=== PATIENT | male | born 1985 | race American Indian/Alaskan Native ===

== ENCOUNTER 2020-03-07 00:33 | Observation (INO) | payer OTHER ==
[2020-03-07] MEDS ORDERED: ONDANSETRON 4 MG/2 ML INJ IV ONE ×2 (01:00→02:21)
[2020-03-07] MEDS ORDERED: SODIUM CHLORIDE 0.9% 1000 ML 1,000 ML IV ONE ×2 (01:00→02:21)
--- NOTE | 2020-03-07 01:03 | Emergency Department Report ---
ED Abdominal Pain HPI - General Chief Complaint: Abdominal Pain Stated Complaint: STOMACH PAIN PUI?: No Time Seen by Provider: 03/07/20 00:59 Source: patient Mode of arrival: Ambulatory Limitations: No Limitations - History of Present Illness Initial Comments: Patient is a 34-year-old male that presents emergency room with complaints of abdominal pain, nausea, vomiting. Patient states his symptoms started yesterday. Patient states his pain is a 10 out of 10. Patient states his pain is worse with vomiting and movement. Patient states his pain is better with rest and n.p.o. and not vomiting. Patient states he is not able to hold any food or water down. Patient states he recently quit smoking approximately 3 days ago. Patient denies chest pain shortness of breath. Patient denies fever and chills. Patient denies recent travel. Patient denies recent international travel. Patient denies exposure to the novel coronavirus. Patient denies sick contacts. Patient denies fever and chills. Patient denies cough. Patient denies diarrhea. Patient denies coming in contact with anybody with symptoms of the novel coronavirus. MD Complaint: abdominal pain -: Sudden Location: diffuse Radiation: none Migration to: no migration Severity: severe Severity scale (0 -10): 10 Quality: stabbing Consistency: constant Improves With: rest Worsens With: vomiting, movement Associated Symptoms: nausea, vomiting. denies: diarrhea, fever, chills, constipation, dysuria, hematemesis, hematochezia, melena, hematuria, anorexia, syncope - Related Data Allergies Allergy/AdvReac Type Severity Reaction Status Date / Time No Known Allergies Allergy Unverified 03/07/20 00:50 ED Review of Systems ROS: Stated complaint: STOMACH PAIN Other details as noted in HPI Constitutional: denies: chills, fever Eyes: denies: eye pain, eye discharge, vision change ENT: denies: ear pain, throat pain Respiratory: denies: cough, shortness of breath, wheezing Cardiovascular: denies: chest pain, palpitations Endocrine: no symptoms reported Gastrointestinal: abdominal pain, nausea, vomiting. denies: diarrhea, constipation, hematemesis, melena, hematochezia Genitourinary: denies: urgency, dysuria, frequency Musculoskeletal: denies: back pain, joint swelling, arthralgia Skin: denies: rash, lesions Neurological: denies: headache, weakness, paresthesias Psychiatric: denies: anxiety, depression Hematological/Lymphatic: denies: easy bleeding, easy bruising ED Past Medical Hx - Past Medical History Previous Medical History?: No - Surgical History Past Surgical History?: No - Family History Family history: no significant - Social History Smoking Status: Former Smoker Substance Use Type: None ED Physical Exam - General Limitations: No Limitations General appearance: alert, in no apparent distress - Head Head exam: Present: atraumatic, normocephalic - Eye Eye exam: Present: normal appearance - ENT ENT exam: Present: mucous membranes moist - Neck Neck exam: Present: normal inspection - Respiratory Respiratory exam: Present: normal lung sounds bilaterally. Absent: respiratory distress - Cardiovascular Cardiovascular Exam: Present: regular rate, normal rhythm. Absent: systolic murmur, diastolic murmur, rubs, gallop - GI/Abdominal GI/Abdominal exam: Present: soft, tenderness (Generalized tenderness.), normal bowel sounds - Rectal Rectal exam: Present: deferred - Extremities Exam Extremities exam: Present: normal inspection - Back Exam Back exam: Present: normal inspection - Neurological Exam Neurological exam: Present: alert, oriented X3 - Psychiatric Psychiatric exam: Present: normal affect, normal mood - Skin Skin exam: Present: warm, dry, intact, normal color. Absent: rash ED Course Vital Signs 03/07/20 00:40 Temperature 97.8 F Pulse Rate 91 H Respiratory 18 Rate Blood Pressure 144/102 O2 Sat by Pulse 99 Oximetry - Reevaluation(s) Reevaluation #1: Patient vomiting was controlled with the initial dose of Zofran. However the patient is now vomiting again. Patient was given fluids and a second dose of Zofran. 03/07/20 02:15 Reevaluation #2: Patient continues to vomit. Patient given a dose of Phenergan rectal suppository. 03/07/20 02:31 Reevaluation #3: Patient continued to vomit and given Haldol 5 mg. Patient's nausea and vomiting has stopped. 03/07/20 03:01 Reevaluation #4: I discussed all results with patient. I discussed plan of care with patient. Patient agrees with plan of care and admission. Patient to be admitted to the hospitalist service. 03/07/20 03:04 - Consultations Consultation #1: Hospitalist consulted for admission. Hospitalist to admit patient. 03/07/20 03:04 ED Medical Decision Making - Lab Data Result diagrams: 03/07/20 01:00 03/07/20 01:00 - Radiology Data Radiology results: report reviewed CT ABDOMEN AND PELVIS WITH CONTRAST INDICATION / CLINICAL INFORMATION: abd pain. n/v. TECHNIQUE: Axial CT images were obtained through the abdomen and pelvis after 100 cc of Omnipaque [address] scans at this location are performed using CT dose reduction for ALARA by means of automated exposure control. COMPARISON: None available. FINDINGS: LOWER CHEST: No significant abnormality. LIVER: No significant abnormality. GALLBLADDER: No significant abnormality. BILE DUCTS: No significant abnormality. PANCREAS: No significant abnormality. SPLEEN: No significant abnormality. ADRENALS: No significant abnormality. RIGHT KIDNEY and URETER: No significant abnormality. LEFT KIDNEY and URETER: No significant abnormality. STOMACH and SMALL BOWEL: There is a mildly distended fluid-filled loop of small bowel in the midabdomen with some mild wall thickening within small bowel loops. No obstruction is seen. There is fluid in the stomach. COLON: No significant abnormality. APPENDIX: No significant abnormality. PERITONEUM: No free fluid. No free air. No fluid collection. LYMPH NODES: No significant adenopathy. AORTA and ARTERIES: No significant abnormality. IVC and VEINS: No significant abnormality. URINARY BLADDER: No significant abnormality. REPRODUCTIVE ORGANS: No significant abnormality. ADDITIONAL FINDINGS: None. SKELETAL SYSTEM: No acute abnormality. IMPRESSION: 1. There is mild wall thickening in a few small bowel loops in the midabdomen with a mildly distended fluid-filled loop noted. There is fluid in the stomach. The appearance is most suggestive of an enteritis. - Medical Decision Making Patient is a 34-year-old male that presents emergency room with nausea and vomiting and abdominal pain. Patient given 2 doses of Zofran, a dose of Phenergan suppository and Haldol. After the Haldol the patient's nausea vomiting was finally controlled. Patient given fluids entire time in the ER. Patient had labs done which were essentially unremarkable. Patient had a CT scan which is enteritis. Patient CT does not show any other acute findings. Patient was admitted to the hospitalist service for further evaluation treatment and intractable nausea and vomiting. - Differential Diagnosis Gastroenteritis, enteritis, colitis, nausea, vomiting, abdominal pain Critical Care Time: Yes Critical care time in (mins) excluding proc time.: 35 Critical care attestation.: If time is entered above; I have spent that time in minutes in the direct care of this critically ill patient, excluding procedure time. Critical Care Time: 35 MINUTES ED Disposition Clinical Impression: Gastroenteritis, Enteritis Abdominal pain Qualifiers: Abdominal location: generalized Qualified Code(s): R10.84 - Generalized abdominal pain Nausea & vomiting Qualifiers: Vomiting type: unspecified Vomiting Intractability: intractable Qualified Code(s): R11.2 - Nausea with vomiting, unspecified Disposition: DC-09 OP ADMIT IP TO THIS HOSP Is pt being admited?: Yes Does the pt Need Aspirin: No Condition: Critical Time of Disposition: 03:06
[2020-03-07 01:40] LABS: Hematocrit 48.7 % (35.5-45.6); Hemoglobin 16.7 gm/dl (11.8-15.2); Mean Corpuscular HGB Conc 34 % (32-34); Mean Corpuscular Volume 94 fl (84-94); Platelet Count 283 K/mm3 (140-440); Red Blood Count 5.19 M/mm3 (3.65-5.03); Red Cell Distribution Width 12.1 % (13.2-15.2)
[2020-03-07 01:42] LABS: Alanine Aminotransferase 20 units/L (7-56); Albumin 4.5 g/dL (3.9-5); BUN/Creatinine Ratio 19; Blood Urea Nitrogen 19 mg/dL (9-20); Calcium 9.6 mg/dL (8.4-10.2); Hemolysis Index 37
[2020-03-07] MEDS ORDERED: PROMETHAZINE 25 MG RECT SUPP PR ONE (02:32)
[2020-03-07] MEDS ORDERED: HALOPERIDOL LACTATE 5 MG/1 ML INJ ONE (02:44)
--- NOTE | 2020-03-07 02:56 | Cat Scan Report ---
CT ABDOMEN AND PELVIS WITH CONTRAST INDICATION / CLINICAL INFORMATION: abd pain. n/v. TECHNIQUE: Axial CT images were obtained through the abdomen and pelvis after 100 cc of Omnipaque [address] scans at this location are performed using CT dose reduction for ALARA by means of automat ed exposure control. COMPARISON: None available. FINDINGS: LOWER CHEST: No significant abnormality. LIVER: No significant abnormality. GALLBLADDER: No significant abnormality. BILE DUCTS: No significant abnormality. PANCREAS: No significant abnormality. SPLEEN: No significant abnormality. ADRENALS: No significant abnormality. RIGHT KIDNEY and URETER: No significant abnormality. LEFT KIDNEY and URETER: No significant abnormality. STOMACH and SMALL BOWEL: There is a mildly distended fluid-filled loop of small bowel in the midabdom en with some mild wall thickening within small bowel loops. No obstruction is seen. There is fluid in the stomach. COLON: No significant abnormality. APPENDIX: No significant abnormality. PERITONEUM: No free fluid. No free air. No fluid collection. LYMPH NODES: No significant adenopathy. AORTA and ARTERIES: No significant abnormality. IVC and VEINS: No significant abnormality. URINARY BLADDER: No significant abnormality. REPRODUCTIVE ORGANS: No significant abnormality. ADDITIONAL FINDINGS: None. SKELETAL SYSTEM: No acute abnormality. IMPRESSION: 1. There is mild wall thickening in a few small bowel loops in the midabdomen with a mildly distended fluid-filled loop noted. There is fluid in the stomach. The appearance is most suggestive of an ente ritis. Signer Name: Lacho Moeller MD Signed: 03/07/2020 2:52 AM Workstation Name: [id number]
[2020-03-07] MEDS ORDERED: HALOPERIDOL LACTATE 5 MG/1 ML INJ IM ONE (02:57)
[2020-03-07 03:26] LABS: Total Cells Counted 100
[2020-03-07 03:27] LABS: Anisocytosis 1+; Platelet Estimate Consistent w Auto
[2020-03-07] MEDS ORDERED: MAGNESIUM HYDROXIDE (MOM) ORAL LIQD UDC PO PRN (04:12)
[2020-03-07] MEDS ORDERED: MORPHINE 2 MG/1 ML INJ IV PRN (04:12)
[2020-03-07] MEDS ORDERED: ONDANSETRON 4 MG/2 ML INJ IV PRN (04:12)
[2020-03-07] MEDS ORDERED: ACETAMINOPHEN 325 MG TAB PO PRN (04:12)
--- NOTE | 2020-03-07 04:21 | History and Physical Report ---
History of Present Illness Date of examination: 03/07/20 Date of admission: 03/07/20 03:08 Chief complaint: Nausea and Vomiting History of present illness: 34-year-old -Iranian male presenting to the emergency room today complaining of nausea and vomiting with associated abdominal pain. Symptoms were said to have started yesterday. Abdominal pain is said to be more in the upper abdomen and is about 10/10 in severity. Patient denies any fever or chills, no chest pain or shortness of breath, no headache or dizziness, no hematuria or dysuria, no diarrhea, no constipation, denies any sick contacts and no recent travel, denies any contact with anyone w jeaneth [id number]. Patient indicates that he just quit tobacco use about 3 days ago. Work-up in the emergency room , CT of the abdomen and pelvis was suggestive of enteritis. Patient being admitted for intractable nausea vomiting with abdominal pain secondary to enteritis. Past History Past Medical History: No medical history Past Surgical History: No surgical history Social history: smoking (Former smoker) Family history: no significant family history Medications and Allergies Allergies Allergy/AdvReac Type Severity Reaction Status Date / Time No Known Allergies Allergy Unverified 03/07/20 00:50 Active Meds: Active Medications Acetaminophen (Acetaminophen 325 Mg Tab) 650 mg PO Q4H PRN PRN Reason: Pain MILD(1-3)/Fever >100.5/PADILLA Sodium Chloride (Nacl 0.9% 1000 Ml) 1,000 mls @ 125 mls/hr IV DIRECT AMANDA Magnesium Hydroxide (Magnesium Hydroxide (Mom) Oral Liqd Udc) 30 ml PO Q4H PRN PRN Reason: Constipation Morphine Sulfate (Morphine 2 Mg/1 Ml Inj) 2 mg IV Q4H PRN PRN Reason: Pain, Moderate (4-6) Ondansetron HCl (Ondansetron 4 Mg/2 Ml Inj) 4 mg IV Q8H PRN PRN Reason: Nausea And Vomiting Sodium Chloride (Sodium Chloride 0.9% 10 Ml Flush Syringe) 10 ml IV BID AMANDA Sodium Chloride (Sodium Chloride 0.9% 10 Ml Flush Syringe) 10 ml IV PRN PRN PRN Reason: LINE FLUSH Review of Systems Constitutional: no fever, no chills Ears, nose, mouth and throat: no nasal congestion, no sore throat Cardiovascular: no chest pain, no palpitations Respiratory: no cough, no shortness of breath Gastrointestinal: abdominal pain, nausea, vomiting, no diarrhea Genitourinary Male: no dysuria, no hematuria, no flank pain Musculoskeletal: no neck pain, no low back pain Integumentary: no rash, no pruritis Neurological: no headaches, no confusion Psychiatric: no anxiety, no depression Exam - Constitutional Vitals: Temp Pulse Resp BP Pulse Ox 98.2 F 89 16 132/77 99 03/07/20 03:52 03/07/20 03:52 03/07/20 03:52 03/07/20 03:52 03/07/20 03:52 General appearance: Present: no acute distress, well-nourished - EENT Eyes: Present: PERRL, EOM intact. Absent: scleral icterus ENT: hearing intact, clear oral mucosa, dentition normal - Neck Neck: Present: supple, normal ROM - Respiratory Respiratory effort: normal Respiratory: bilateral: CTA - Cardiovascular Rhythm: regular Heart Sounds: Present: S1 & S2. Absent: gallop, systolic murmur, diastolic murmur, rub - Extremities Extremities: no ischemia, pulses intact, pulses symmetrical, No edema, normal temperature, normal color, Full ROM Peripheral Pulses: within normal limits - Abdominal General gastrointestinal: Present: soft, tender (Mild epigastric tenderness, no rebound tenderness, no guarding), non-distended, normal bowel sounds. Absent: mass - Integumentary Integumentary: Present: clear, warm, dry. Absent: rash - Musculoskeletal Musculoskeletal: strength equal bilaterally - Psychiatric Psychiatric: appropriate mood/affect, intact judgment & insight, memory intact, cooperative - Neurologic Neurologic: CNII-XII intact, no focal deficits, moves all extremities Results - Labs CBC & Chem 7: 03/07/20 01:00 03/07/20 01:00 Labs: Abnormal lab results 03/07/20 03/07/20 Range/Units 01:00 01:00 RBC 5.19 H (3.65-5.03) M/mm3 Hgb 16.7 H (11.8-15.2) gm/dl Hct 48.7 H (35.5-45.6) % RDW 12.1 L (13.2-15.2) % Lymphocytes % (Manual) 40.0 H (13.4-35.0) % Monocytes % (Manual) 16.0 H (0.0-7.3) % Glucose 115 H (75-100) mg/dL Assessment and Plan - Patient Problems (1) Nausea & vomiting Current Visit: Yes Status: Acute Qualifiers: Vomiting type: unspecified Vomiting Intractability: intractable Qualified Code(s): R11.2 - Nausea with vomiting, unspecified Plan to address problem: Patient started on IV fluid and IV Zofran as needed. (2) Abdominal pain Current Visit: Yes Status: Acute Qualifiers: Abdominal location: generalized Qualified Code(s): R10.84 - Generalized abdominal pain Plan to address problem: Possibly secondary to enteritis. Patient is continued on IV analgesic medication and IV fluid. (3) DVT prophylaxis Current Visit: Yes Status: Acute Plan to address problem: Patient placed on subcutaneous Lovenox. (4) Full code status Current Visit: Yes Status: Acute Plan to address problem: Patient is a full code.
[2020-03-07] MEDS: SODIUM CHLORIDE 0.9% 1000 ML 1,000 ML IV SCH ×3 (05:38→21:57)
--- NOTE | 2020-03-07 12:19 | Event Note ---
Date: 03/07/20 Patient seen and examined, still with abdominal pain but improving some. reports one prior episode. Denies any fever at this time.
[2020-03-07 13:58] LABS: Amphetamine Screen,Urine Negative; Benzodiazepines Screen,Urine Negative; Methadone Screen,Urine Negative; Opiate Screen,Urine Negative
[2020-03-07 14:03] LABS: Bilirubin,Urine NEG (Negative); Blood,Urine NEG (Negative); Color,Urine Yellow (Yellow); Mucus,Urine 2+ /HPF
[2020-03-07 14:11] LABS: Cannabinoid Screen,Urine Positive; Cocaine Screen,Urine Positive
--- NOTE | 2020-03-07 15:38 | Consultation ---
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 This progressed over the next 2 days, to where pt came to ER. No GI bleed. Has abd pain after retching. Denies diarrhea, and states he has had a BM several days ago. No F/C/NS. No clear atypical food exposures. Of note, pt smokes marijuana daily, and tried quitting smoking 4 days ago. He also notes that he has had N/V off and on in the past for years, though ~1x/yr, and not this severe. States he has had some testing, but no endoscopic evaluation. No weight loss. Denies recent stress. Meds reviewed. Past History Past Medical History: No medical history, HIV/AIDS Past Surgical History: No surgical history Social history: smoking (Former smoker - quit 03/04/20. Smokes marijuana daily.) Family history: no significant family history Medications and Allergies Allergies Allergy/AdvReac Type Severity Reaction Status Date / Time No Known Allergies Allergy Unverified 03/07/20 00:50 Active Meds: Active Medications Acetaminophen (Acetaminophen 325 Mg Tab) 650 mg PO Q4H PRN PRN Reason: Pain MILD(1-3)/Fever >100.5/PADILLA Enoxaparin Sodium (Enoxaparin 40 Mg/0.4 Ml Inj) 40 mg SUB-Q QDAY@2200 AMANDA; Protocol Sodium Chloride (Nacl 0.9% 1000 Ml) 1,000 mls @ 125 mls/hr IV DIRECT [facility] Last Admin: 03/07/20 13:24 Dose: 125 mls/hr Documented by: Magnesium Hydroxide (Magnesium Hydroxide (Mom) Oral Liqd Udc) 30 ml PO Q4H PRN PRN Reason: Constipation Morphine Sulfate (Morphine 2 Mg/1 Ml Inj) 2 mg IV Q4H PRN PRN Reason: Pain, Moderate (4-6) Ondansetron HCl (Ondansetron 4 Mg/2 Ml Inj) 4 mg IV Q8H PRN PRN Reason: Nausea And Vomiting Sodium Chloride (Sodium Chloride 0.9% 10 Ml Flush Syringe) 10 ml IV BID [facility] Last Admin: 03/07/20 13:08 Dose: Not Given Documented by: Sodium Chloride (Sodium Chloride 0.9% 10 Ml Flush Syringe) 10 ml IV PRN PRN PRN Reason: LINE FLUSH Review of Systems All systems: negative (as noted in HPI) Exam - Constitutional Vitals: Temp Pulse Resp BP Pulse Ox 98.7 F 60 18 119/71 99 03/07/20 11:31 03/07/20 11:31 03/07/20 11:31 03/07/20 11:31 03/07/20 11:31 General appearance: Present: mild distress, other (fairly dramatic symptoms with nausea and retching, and pounding chest at times) - EENT Eyes: Present: PERRL, EOM intact ENT: hearing intact - Respiratory Respiratory effort: normal Respiratory: bilateral: CTA - Cardiovascular Rhythm: regular Heart Sounds: Present: S1 & S2 - Extremities Extremities: No edema - Abdominal General gastrointestinal: Present: soft, non-tender Results - Labs CBC & Chem 7: 03/07/20 01:00 03/07/20 01:00 Labs: Abnormal lab results 03/07/20 03/07/20 03/07/20 Range/Units 01:00 01:00 13:00 RBC 5.19 H (3.65-5.03) M/mm3 Hgb 16.7 H (11.8-15.2) gm/dl Hct 48.7 H (35.5-45.6) % RDW 12.1 L (13.2-15.2) % Lymphocytes % (Manual) 40.0 H (13.4-35.0) % Monocytes % (Manual) 16.0 H (0.0-7.3) % Glucose 115 H (75-100) mg/dL Ur Specific Normanna 1.060 H (1.003-1.030) - Imaging and Cardiology CT scan - abdomen: report reviewed (mild small bowel dilation with fluid) Assessment and Plan 1. N/V - most c/w acute enteritis. Could be cannabinoid-related hyperemesis. Doubt related to HIV, as pt states he is on meds. Most likely has a functional component, antolin given similar symptoms in the past. - will give Ativan - check GB ultrasound - empiric PPI
[2020-03-07] MEDS: LORazepam 2 MG/ML VIAL IV SCH (15:55)
[2020-03-07] MEDS ORDERED: ENOXAPARIN 40 MG/0.4 ML INJ SUB-Q SCH (22:00)
[2020-03-08] MEDS: LORazepam 2 MG/ML VIAL IV SCH (04:20)
[2020-03-08 05:02] LABS: Hematocrit 40.2 % (35.5-45.6); Hemoglobin 13.7 gm/dl (11.8-15.2); Mean Corpuscular HGB Conc 34 % (32-34); Mean Corpuscular Volume 94 fl (84-94); Platelet Count 192 K/mm3 (140-440); Red Blood Count 4.26 M/mm3 (3.65-5.03); Red Cell Distribution Width 12.1 % (13.2-15.2)
[2020-03-08 05:16] LABS: INR 1.1 (0.87-1.13)
[2020-03-08 05:17] LABS: Blood Urea Nitrogen 9 mg/dL (9-20); Calcium 7.6 mg/dL (8.4-10.2); Hemolysis Index 4
[2020-03-08 05:23] LABS: BUN/Creatinine Ratio 15
[2020-03-08 06:43] LABS: Anisocytosis 1+; Total Cells Counted 100
[2020-03-08 06:44] LABS: Platelet Estimate Consistent w Auto
[2020-03-08 09:19] VITALS: BP 108/68
[2020-03-08] MEDS: SODIUM CHLORIDE 0.9% 1000 ML 1,000 ML IV SCH (09:22)
[2020-03-08] MEDS ORDERED: PANTOPRAZOLE 40 MG TAB PO SCH (10:00)
--- NOTE | 2020-03-08 10:02 | Ultrasound Report ---
LIMITED RUQ ABDOMINAL ULTRASOUND INDICATION / CLINICAL INFORMATION: Nausea/vomiting. COMPARISON: No relevant prior imaging study available. FINDINGS: PANCREAS: Visualized portions of the pancreas are within normal limits. ABDOMINAL AORTA: No significant abnormality. IVC: No significant abnormality. LIVER: The liver measures 14.6 cm in length. The liver demonstrates a normal echogenicity and morpho logy. PORTAL VEIN: Normal hepatopedal blood flow in the main portal vein. GALLBLADDER: The gallbladder is unremarkable. There is no cholelithiasis, gallbladder wall thickening , or pericholecystic fluid. BILE DUCTS: No significant abnormality. Common bile duct measures 5 mm. RIGHT KIDNEY: No significant abnormality visualized. FREE FLUID: None. ADDITIONAL FINDINGS: None. IMPRESSION: No sonographic abnormality of the right upper quadrant. Signer Name: Oswaldo Kurtz MD Signed: 03/08/2020 9:58 AM Workstation Name: [id number]
--- NOTE | 2020-03-08 11:38 | Discharge Summary ---
Providers - Providers Date of Admission: 03/07/20 03:08 Attending physician: CALLI MESSINA MD 03/07/20 07:24 Consult to Physician [CONS] Routine Comment: Consulting Provider: MICHEL BELLAMY Physician Instructions: Reason For Exam: abdominal pain [facility] Reason for admission: Abdominal pain Condition: Stable Hospital course: 34-year-old -[place] male presenting to the emergency room today complaining of nausea and vomiting with associated abdominal pain. Symptoms w ere said to have started yesterday. Abdominal pain is said to be more in the upper abdomen and is about 10/10 in severity. Patient denies any fever or chills, no chest pain or shortness of breath, no headache or dizziness, no hematuria or dysuria, no diarrhea, no constipation, denies any sick contacts and no recent travel, denies any contact with anyone with COVID-19. Patient indicates that he just quit tobacco use about 3 days ago. Work-up in the emergency room , CT of the abdomen and pelvis was suggestive of enteritis. Patient being admitted for intractable nausea vomiting with abdominal pain secondary to enteritis. 03/08: GI input noted and appreciated. Ultrasound of the abdomen showed no acute pathology. Patient clinically improved today tolerating clear liquid advised to stay with full liquid diet for the next few days prior to advancing slowly. He is to follow his doctor for continued HIV management. Abdominal pain secondary to underlying gastroenteritis Cannabinoid related hyperemesis Enteritis HIV Disposition: TO HOME OR SELFCARE Time spent for discharge: 35 mins Core Measure Documentation - Palliative Care Palliative Care/ Comfort Measures: Not Applicable - Core Measures Any of the following diagnoses?: none Exam - Physical Exam Narrative exam: VITAL SIGNS: Reviewed. GENERAL: The patient appears normally developed, Vital signs as documented. HEAD: No signs of head trauma. EYES: Pupils are equal. Extraocular motions intact. EARS: Hearing grossly intact. MOUTH: Oropharynx is normal. NECK: No adenopathy, no JVD. CHEST: Chest with clear breath sounds bilaterally. No wheezes, rales, or rhonchi. CARDIAC: Regular rate and rhythm. S1 and S2, without murmurs, gallops, or rubs. VASCULAR: No Edema. Peripheral pulses normal and equal in all extremities. ABDOMEN: Soft, non tender and non distended. No rebound or guarding, and no masses palpated. Bowel Sounds normal. MUSCULOSKELETAL: Good range of motion of all major joints. Extremities without clubbing, cyanosis or edema. NEUROLOGIC EXAM: Alert and oriented x 3 No focal sensory or strength deficits. Speech normal. Follows commands. PSYCHIATRIC: Mood normal. SKIN: detail exam as documented in skin assessment - Constitutional Vitals: Temp Pulse Resp BP Pulse Ox 98.3 F 64 18 108/68 99 03/08/20 07:35 03/08/20 07:35 03/08/20 07:35 03/08/20 07:35 03/08/20 07:35 Plan Activity: advance as tolerated, fall precautions Diet: low fat, advance as tolerated Special Instructions: record daily weights, record daily BP diary Follow up with: KENNA NAVARRO MD [Primary Care Provider] - 7 Days MICHEL BELLAMY MD [Staff Physician] - 7 Days Prescriptions: traMADoL [Ultram] 50 mg PO Q6HR PRN #10 tablet PRN Reason: Pain Ondansetron [Zofran Odt] 4 mg PO Q8HR #30 tab.ian
[2020-03-08] MEDS ORDERED: POTASSIUM CHLORIDE ER 20 MEQ TAB PO ONE (12:00)
== END 2020-03-08 16:25 | disposition home or self-care (01) ==
LOC: ED 00:33 → 3B 03:08
PROVIDERS: ADMIT Internal Medicine Geriatric Medicine; ATTEND Internal Medicine
DX: K52.9 Noninfective gastroenteritis and colitis, unspecified (principal); Z87.891 Personal history of nicotine dependence; Z79.899 Other long term (current) drug therapy
CPT/HCPCS: 36415; 74177; 76705; 80048; 80053; 80307; 81001; 83690; 85025; 85610; 96361; 96372; 96374; 96375; 96376; 99291; G0378; J1630; J1650; J2060; J2405; J7030; Q9967; 85007

== ENCOUNTER 2021-03-22 16:07 | Emergency (ER) | payer SELFPAY ==
[2021-03-22] MEDS ORDERED: ONDANSETRON 4 MG ODT TAB PO ONE (19:43)
[2021-03-22] MEDS ORDERED: ONDANSETRON 4 MG ODT TAB ONE (19:44)
[2021-03-22] MEDS ORDERED: SODIUM CHLORIDE 0.9% 1000 ML 1,000 ML IV ONE (21:56)
[2021-03-22] MEDS ORDERED: LIDOCAINE VISCOUS 2% 15 ML ORAL LIQD PO ONE (21:56)
[2021-03-22] MEDS ORDERED: FAMOTIDINE 20 MG/2 ML INJ IV ONE (21:56)
[2021-03-22] MEDS ORDERED: ALUM-MAG HYDROXIDE-SIMETHICONE 200-200-20MG/5ML ORAL LIQD 30 ML PO ONE (21:56)
[2021-03-22] MEDS ORDERED: ONDANSETRON 4 MG/2 ML INJ IV ONE (21:56)
--- NOTE | 2021-03-22 22:01 | Emergency Department Report ---
HPI - General Chief Complaint: Chest Pain Time Seen by Provider: 03/22/21 21:43 - HPI HPI: MSE 1 The patient is a 35-year-old male present with chief complaint of belching nausea and vomiting. Patient states symptoms began 1 week ago with intermittent belching. Patient states for the past 2 nights he has had intractable nausea vomiting and unable to keep anything down. Patient states his last bowel movement occurred today and was within normal limits. The patient states he only has chest discomfort whenever he feels like he has to vomit or when he feels as though he has to belch but nothing comes up. Patient states he thinks he has had a subjective fever but is not certain. Patient states at 1 point he attempted to use Tums and Pepcid but has not helped. Patient denies any known sick contacts ED Past Medical Hx - Surgical History Past Surgical History?: No - Family History Family history: no significant - Social History Smoking Status: Former Smoker (None x2 weeks) Substance Use Type: Alcohol (Occasional), Marijuana - Medications Home Medications: Home Medications Medication Instructions Recorded Confirmed Last Taken Type Ondansetron [Zofran Odt] 4 mg PO Q8HR #30 tab.rapdis 03/08/20 Unknown Rx traMADoL [Ultram] 50 mg PO Q6HR PRN #10 tablet 03/08/20 Unknown Rx Aspirin 325 mg PO QDAY #30 tablet 03/23/21 Unknown Rx Ondansetron [Zofran ODT TAB] 8 mg PO Q8HR #20 tab.rapdis 03/23/21 Unknown Rx Pantoprazole [Protonix TAB] 20 mg PO QDAY #30 03/23/21 Unknown Rx ED Review of Systems ROS: Stated complaint: ACID REFLUX Other details as noted in HPI Constitutional: fever (?) Eyes: denies: eye pain ENT: denies: throat pain Respiratory: no symptoms reported Cardiovascular: denies: chest pain Endocrine: no symptoms reported Gastrointestinal: nausea, vomiting, other (Eructation) Genitourinary: denies: dysuria Musculoskeletal: denies: back pain Neurological: denies: headache Physical Exam - Physical Exam Physical Exam: GENERAL: The patient is well-developed well-nourished male lying on chair not appearing to be in acute distress. [] HEENT: Normocephalic. Atraumatic. Extraocular motions are intact. Patient has moist mucous membranes. NECK: Supple. Trachea midline CHEST/LUNGS: Clear to auscultation. There is no respiratory distress noted. HEART/CARDIOVASCULAR: Regular. There is no tachycardia. There is no gallop rub or murmur. ABDOMEN: Abdomen is soft, nontender. Patient has normal bowel sounds. There is no abdominal distention. SKIN: There is no rash. There is no edema. There is no diaphoresis. NEURO: The patient is awake, alert, and oriented. The patient is cooperative. The patient has no focal neurologic deficits. The patient has normal speech. GCS 15 MUSCULOSKELETAL: There is no evidence of acute injury. ED Medical Decision Making - Lab Data Result diagrams: 03/22/21 22:39 03/22/21 22:39 Laboratory Tests 03/22/21 03/22/21 03/22/21 22:39 22:39 22:39 WBC 5.0 RBC 4.32 Hgb 12.6 Hct 39.8 MCV 92 MCH 29 MCHC 32 RDW 12.3 L Plt Count 313 Lymph % (Auto) 11.4 L Mcdowell % (Auto) 8.7 H Eos % (Auto) 2.6 Baso % (Auto) 0.6 Lymph # (Auto) 0.6 L Mcdowell # (Auto) 0.4 Eos # (Auto) 0.1 Baso # (Auto) 0.0 Seg Neutrophils % 76.7 H Seg Neutrophils # 3.8 Sodium 138 Potassium 3.6 Chloride 100.2 Carbon Dioxide 25 Anion Gap 16 BUN 12 Creatinine 0.6 L Estimated GFR > 60 BUN/Creatinine Ratio 20 Glucose 95 Calcium 8.7 Total Bilirubin 0.40 AST 21 ALT 10 Alkaline Phosphatase 71 Troponin T < 0.010 Total Protein 8.1 Albumin 4.2 Albumin/Globulin Ratio 1.1 Lipase 25 03/23/21 01:37 WBC RBC Hgb Hct MCV MCH MCHC RDW Plt Count Lymph % (Auto) Mcdowell % (Auto) Eos % (Auto) Baso % (Auto) Lymph # (Auto) Mcdowell # (Auto) Eos # (Auto) Baso # (Auto) Seg Neutrophils % Seg Neutrophils # Sodium Potassium Chloride Carbon Dioxide Anion Gap BUN Creatinine Estimated GFR BUN/Creatinine Ratio Glucose Calcium Total Bilirubin AST ALT Alkaline Phosphatase Troponin T < 0.010 Total Protein Albumin Albumin/Globulin Ratio Lipase - EKG Data -: EKG Interpreted by Ia EKG shows normal: sinus rhythm Rate: normal - EKG Data When compared to previous EKG there are: previous EKG unavailable Interpretation: nonspecific ST-T wave yanira (Possible pericarditis) - Radiology Data Radiology results: report reviewed (Acute abdominal series x-ray), image reviewed (Acute abdominal series x-ray) interpreted by me: Acute abdominal series [id number]-dfd-exeeomfeavv bowel gas pattern. No evidence of obstruction. No free air. No focal infiltrates, no pneumothorax [facility] [address] [place] [address] XRay Report Signed Patient: FE MOTA MR#: [id number] : 1985 Acct:[id number] Age/Sex: 35 / M ADM Date: 03/22/21 Loc: ED Attending Dr: Ordering Physician: LESLIE JOINER MD Date of Service: 03/22/21 Procedure(s): XR abd series w cxr 1V Accession Number(s): [id number] cc: LESLIE JOINER MD Fluoro Time In Minutes: XR abd series w cxr 1V INDICATION / CLINICAL INFORMATION: Nausea vomit. COMPARISON: None available. TECHNIQUE: Flat and erect images of the abdomen with additional AP view of the chest. FINDINGS: TUBES / LINES: None. BOWEL GAS PATTERN: No significant abnormality. FREE AIR / EXTRALUMINAL GAS: None seen. ADDITIONAL FINDINGS: No significant additional findings. IMPRESSION: 1. No significant abnormality. Signer Name: Fe Mcnair II, MD Signed: 03/22/2021 10:29 PM Workstation Name: [id number] Transcribed By: JELANI Dictated By: FE MCNAIR II, MD Electronically Authenticated By: FE MCNAIR II, MD Signed Date/Time: 03/22/212228 DD/ 28 TD/TT: Print Cancel - Differential Diagnosis GERD, gastritis, ACS, anxiety Critical care attestation.: If time is entered above; I have spent that time in minutes in the direct care of this critically ill patient, excluding procedure time. ED Disposition Clinical Impression: Nausea & vomiting Disposition: 01 HOME / SELF CARE / HOMELESS Is pt being admited?: No Does the pt Need Aspirin: No Condition: Stable Instructions: Nausea and Vomiting, Adult Additional Instructions: Return to the emergency department should you develop worsening symptoms, inability to tolerate food or liquids, high fever or any other concerns Prescriptions: Aspirin 325 mg PO QDAY #30 tablet Pantoprazole [Protonix TAB] 20 mg PO QDAY #30 Ondansetron [Zofran ODT TAB] 8 mg PO Q8HR #20 tab.rapdis Referrals: PRIMARY CARE, [Primary Care Provider] - 3-5 Days NICHOL MELCHOR MD [Staff Physician] - 3-5 Days (Dr. Melchor is a director of online merchandising. Please follow-up with him for further evaluation) Time of Disposition: 02:14
--- NOTE | 2021-03-22 22:34 | XRay Report ---
XR abd series w cxr 1V INDICATION / CLINICAL INFORMATION: Nausea vomit. COMPARISON: None available. TECHNIQUE: Flat and erect images of the abdomen with additional AP view of the chest. FINDINGS: TUBES / LINES: None. BOWEL GAS PATTERN: No significant abnormality. FREE AIR / EXTRALUMINAL GAS: None seen. ADDITIONAL FINDINGS: No significant additional findings. IMPRESSION: 1. No significant abnormality. Signer Name: Nabil Rodriguez II, MD Signed: 03/22/2021 10:29 PM Workstation Name: [id number]: turn off the [id number]
[2021-03-22 23:20] LABS: Basophils % (Auto) 0.6 % (0.0-1.8); Eosinophils # (Auto) 0.1 K/mm3 (0.0-0.4); Eosinophils % (Auto) 2.6 % (0.0-4.3); Hematocrit 39.8 % (35.5-45.6); Hemoglobin 12.6 gm/dl (11.8-15.2); Lymphocytes # (Auto) 0.6 K/mm3 (1.2-5.4); Lymphocytes % (Auto) 11.4 % (13.4-35.0); Mean Corpuscular HGB Conc 32 % (32-34); Mean Corpuscular Volume 92 fl (84-94); Monocytes # (Auto) 0.4 K/mm3 (0.0-0.8); Monocytes % (Auto) 8.7 % (0.0-7.3); Platelet Count 313 K/mm3 (140-440); Red Blood Count 4.32 M/mm3 (3.65-5.03); Red Cell Distribution Width 12.3 % (13.2-15.2)
[2021-03-22 23:27] LABS: Alanine Aminotransferase 10 units/L (7-56); Albumin 4.2 g/dL (3.9-5); Blood Urea Nitrogen 12 mg/dL (9-20); Calcium 8.7 mg/dL (8.4-10.2); Hemolysis Index 24
[2021-03-22 23:28] LABS: BUN/Creatinine Ratio 20
[2021-03-23] MEDS ORDERED: METOCLOPRAMIDE 10 MG/2 ML INJ IV ONE (00:13)
[2021-03-23 04:41] VITALS: BP 138/70
--- NOTE | 2021-03-23 09:04 | Electrocardiograph Report ---
[facility] Test Date: 2021-03-22 Test Time: 23:52:45 Pat Name: FE MOTA Department: Room: Gender: M Business Trainer: : 1985 Requested By: LESLIE JOINER Order Number: [id number] Reading MD: Jose Cobos Measurements Intervals [place] Rate: 59 P: 74 KS: 148 QRS: 63 QRSD: 80 T: 72 QT: 426 QTc: 423 Interpretive Statements Bradycardia with irregular rate ST elevation, consider inferior injury No previous ECG available for comparison Electronically Signed On 03-23-2021 9:04:14 EST by Jose Cobos
== END 2021-03-23 03:30 | disposition home or self-care (01) ==
LOC: ED 16:07
DX: R11.2 Nausea with vomiting, unspecified (principal); F12.90 Cannabis use, unspecified, uncomplicated; Z87.891 Personal history of nicotine dependence; Z72.89 Other problems related to lifestyle; Z79.899 Other long term (current) drug therapy
CPT/HCPCS: 36415; 74022; 80053; 83690; 84484; 85025; 93005; 93010; 96361; 96374; 96375; 99284; J2405; J2765; J3490; J7030; Q0162